=== PATIENT | male | born 1930 ===

== ENCOUNTER 2021-02-28 03:14 | Inpatient (IN) | payer MEDICARE ==
[~2021-02-28] VITALS: Ht 182.9 cm; Wt 84.3 kg
[2021-02-28 04:19] LABS: BASOPHILS ABSOLUTE AUTO 0.01 K/mm3 (0.00-0.23); BASOPHILS PERCENT AUTO 0 % (0-2); EOSINOPHILS ABSOLUTE AUTO 0.01 K/mm3 (0.00-0.68); EOSINOPHILS PERCENT AUTO 0 % (0-6); Hematocrit 29.6 % (37.0-53.0); Hemoglobin 10.7 g/dL (13.5-17.5); IMMATURE GRAN ABSOLUTE AUTO 0.13 K/mm3 (0.00-0.10); IMMATURE GRAN PERCENT AUTO 1 % (0-1); LYMPHOCYTES ABSOLUTE AUTO 0.39 K/mm3 (0.84-5.20); LYMPHOCYTES PERCENT AUTO 4 % (21-46); MONOCYTES ABSOLUTE AUTO 0.57 K/mm3 (0.16-1.47); MONOCYTES PERCENT AUTO 6 % (4-13); Mean Corpuscular HGB 31.7 pg (26.0-34.0); Mean Corpuscular HGB Conc 36.1 g/dL (31.5-36.5); Mean Corpuscular Volume 88 fL (80-100); Mean Platelet Volume 11.4 fL (9.1-12.4); NEUTROPHILS ABSOLUTE AUTO 8.74 K/mm3 (1.96-9.15); NEUTROPHILS PERCENT AUTO 89 % (41-73); Platelet Count 104 K/mm3 (150-400); RDW Coefficient Variation 13.2 % (11.7-14.2); RDW Standard Deviation 42.4 fL (35.1-46.3); Red Blood Cell Count 3.38 M/mm3 (4.30-5.90); White Blood Cell Count 9.85 K/mm3 (4.00-11.30)
[2021-02-28 04:41] LABS: Albumin, Blood 2.6 g/dL (3.4-5.0); Albumin/Globulin Ratio 0.7 (0.8-1.8); Bilirubin, Total 1.2 mg/dL (0.1-1.0); Bun/Creatinine Ratio 33.1 (12.0-20.0); C-REACTIVE PROTEIN, EXT RANGE 14.3 mg/dL (0.000-0.300); Calcium, Blood 8.6 mg/dL (8.5-10.1); Creatinine, Blood 1.81 mg/dL (0.60-1.20); Globulin, Blood 3.5 g/dL (2.2-4.0); Potassium, Blood 4.2 mmol/L (3.5-5.5); Total Protein, Blood 6.1 g/dL (6.4-8.2); Troponin I 0.259 ng/mL (0.000-0.040)
--- NOTE | 2021-02-28 07:24 | NUR ---
TRANSFER NOTE PT TX FROM ER TO ICU SHORTLY BEFORE 0700. TX TO ICU BED VIA SLIDER SHEET. PT ARRIVED ON 6LPM O2 VIA NC c O2 SATS >90%. RR IN THE 30'S. PT ALERT BUT NOT FOLLOWING COMMANDS, HAS HEADPHONES WITH A SPEAKING BOX BUT PT DOES NOT APPEAR TO HEAR THIS NURSE. RATHER LIMITED HISTORY ON PATIENT SO BASELINE UNKNOWN AT THIS TIME. PT WITH 22 GA IV IN R HAND, ZOSYN STARTED. UNABLE TO ESTABLISH A SECOND IV. REPORT GIVEN TO ONCOMING NURSE.
[2021-02-28] MEDS ORDERED: ALLO100 PO (09:03)
[2021-02-28] MEDS ORDERED: BISA5EC PO (09:04)
[2021-02-28] MEDS ORDERED: CENTRUM SILVER1 EAC2 PO (09:04)
[2021-02-28] MEDS ORDERED: ACET325 PO (09:04)
[2021-02-28] MEDS ORDERED: DOXA2 PO (09:06)
[2021-02-28] MEDS ORDERED: DONE5 PO (09:06)
[2021-02-28] MEDS ORDERED: BISA10S (09:07)
[2021-02-28] MEDS ORDERED: ATROVENT HFA12.9 GM (09:08)
[2021-02-28] MEDS ORDERED: LATANOPROST2.5 M3 BOTHEYES (09:09)
[2021-02-28] MEDS ORDERED: ALLERCLEAR10 MG PO (09:10)
[2021-02-28] MEDS ORDERED: MELADOX PO (09:10)
[2021-02-28] MEDS ORDERED: QUET25 PO (09:11)
[2021-02-28] MEDS ORDERED: ZOLOFT50 MG PO (09:12)
[2021-02-28] MEDS ORDERED: SIME80CH PO (09:12)
[2021-02-28 11:29] LABS: Source, Urine Catheter
[2021-02-28 11:38] LABS: Appearance, Urine Clear (Clear); Bilirubin, Urine Neg (Neg); Blood, Urine Neg (Neg); Color, Urine Yellow (P-Yellow); Glucose Qualitative, Urine Neg (Neg); Ketones, Urine Neg (Neg); Leukocyte Esterase, Urine Neg (Neg); Nitrite, Urine Neg (Neg); Protein, Urine 2+ (Neg); Urobilinogen, Urine NORM (Normal)
[2021-02-28 11:53] LABS: Bacteria Few /hpf; Red Blood Cells, Urine 0-2 /hpf (0-2); Squamous Epithelial Cells Rare /hpf (Few); White Blood Cells, Urine 0-2 /hpf (0-5)
--- NOTE | 2021-02-28 15:22 | NUR ---
UPDATE: ASSUMED CARE OF PT AT 0700. PT IS ALERT, HOWEVER IS VERY HARD OF HEARING TO RIGHT EAR, DEAF IN LEFT EAR PER PT'S SON JUAN A. JUAN A STATED THAT PT TESTED POSITIVE FOR COVID ON THE January, THEN SENT TO [facility]. PT IS VACCINATED AGAINST COVID, PER JUAN A. PT LIVES IN AN ASSISTED LIVING IN [place] ([place] AWAITING PLACEMENT FOR MEMORY CARE FACILITY. PT IS CONFUSED AT BASELINE, DUE TO HX OF DEMENTIA PER SON. PT IS CURRENTLY ON 6L OF O2 VIA NC WITH SPO2 ABOVE 90% RR BETWEEN 25-35. RT NT SUCTIONED PT, THICK YELLOW SECRETIONS NOTED. CRACKLES CAN BE HEARD BILAT UPPER LOBES. PT'S COUGH IS VERY WEAK. PT IS NOW A DNR/DNI PER SON'S WISHES. PT HAS BEEN IN SR WITH HR IN THE 70'S, PT HAVING FREQUENT PVC'S, BIGEMINAL PVC'S NOTED, CALLED, ORDERD 2GRAMS OF MAG AND 5MG OF LOPRESSOR. BLADDER SCANNED PATIENT 701ML OF URINE NOTED, TEMP ORTIZ INSERTED, DRAINING JOHN COLORED URINE. WILL CONTINUE TO MONITOR PT T/O SHIFT.
--- NOTE | 2021-02-28 18:17 | NUR ---
END SHIFT NOTE: SEE PREVIOUS NOTE. PT CONTINUES TO BE ALERT, ORIENTED TO SELF, ABLE TO ANSWER SOME YES/NO QUESTIONS. CONFUSED, VERY SLOW TO RESPOND. PT WILL FIDGET WITH LINES AT TIMES, AND PULL ON LEADS, POSSIBLY RELATED TO PAIN. PRN ACETAMINOPHEN GIVEN PER MAR FOR PAIN/FEVER, TMAX 101.1. ACETAMINOPHEN , GOOD EFFECT FOR PAIN, LITTLE EFFECT TO TEMP. ZYPREXA SUBLINGUAL GIVEN FOR AGITATION WITH GOOD EFFECT. PT HAS BEEN ON 2L OF 02 VIA NC SINCE 1600, SPO2 ABOVE 90% PT CONTINUES TO HAVE WEAK COUGH, NT SUCTION PROVIDED PRN, PT TOLERATES WELL. THICK YELLOW SECRETIONS NOTED. PT HAS BEEN IN AFLUTTER WITH HR IN THE 70-80'S, LESS PVC'S NOTED SINCE IVBP MAG GIVEN. BLOOD PRESSURE STABLE T/O SHIFT. TEMP ORTIZ PATENT, DRAINING TO GRAVITY, JOHN IN COLOR, 900ML URINE OUTPUT. NO BM THIS SHIFT. POWER GLIDE PLACED TO KATIA. PT TURNED EVERY TWO HOURS TO PREVENT FURTHER SKIN BREAKDOWN. BED AT LOWEST LEVEL.
--- NOTE | 2021-02-28 19:30 | NUR ---
ASSUMED CARE PATIENT LYING IN BED WITH EYES CLOSED; PULLING AT LINES AND CORDS CONTINUOUSLY. 2L VIA NC IN PLACE WITH SPO2 IN LOW 90'S. NS TKO TO POWER GLIDE IN KATIA. 22G IV IN RT HAND SALINE LOCKED. PATIENT GLASSES ON BEDSIDE TABLE. PATIENT DOES NOT OPEN EYES OR GREET STAFF UPON ENTERING ROOM. MICROPHONE HEADSET IN ROOM AND PATIENT RESPONDS WITH SOUNDS AND "YES/NO/OK" AT TIMES. FOLLOWS COMMANDS INTERMITTENTLY, BUT NOT CONSISTENTLY. TEMP ORTIZ PATENT AND DRAINING DARK YELLOW URINE W/ SEDIMENT. PATIENT HAS FREQUENT PVC'S W/ RATE IN 80'S-90'S. REPORTS OF PATIENT BEING IMPULSIVE AT BASELINE AND FALL RISK; BED ALARM ON. REPORT COMPLETED W/ SERGIO ENRIQUEZ.
[2021-03-01 04:05] LABS: Hematocrit 26.3 % (37.0-53.0); Hemoglobin 9.1 g/dL (13.5-17.5); Mean Corpuscular HGB Conc 34.6 g/dL (31.5-36.5); Mean Corpuscular Volume 90 fL (80-100); Mean Platelet Volume 10.9 fL (9.1-12.4); Platelet Count 147 K/mm3 (150-400); RDW Coefficient Variation 13.2 % (11.7-14.2); RDW Standard Deviation 43.5 fL (35.1-46.3); Red Blood Cell Count 2.94 M/mm3 (4.30-5.90)
[2021-03-01 04:31] LABS: Albumin, Blood 2.3 g/dL (3.4-5.0); Albumin/Globulin Ratio 0.7 (0.8-1.8); Bilirubin, Total 1.3 mg/dL (0.1-1.0); Bun/Creatinine Ratio 31.5 (12.0-20.0); Calcium, Blood 8.8 mg/dL (8.5-10.1); Creatinine, Blood 2.03 mg/dL (0.60-1.20); Globulin, Blood 3.5 g/dL (2.2-4.0); Potassium, Blood 3.7 mmol/L (3.5-5.5); Total Protein, Blood 5.8 g/dL (6.4-8.2)
[2021-03-01 04:33] LABS: BAND PERCENT MAN 31 % (0-8); BASOPHILS PERCENT MAN 0 % (0-2); EOSINOPHILS PERCENT MAN 0 % (0-6); LYMPHOCYTES ABSOLUTE MAN 0.58 K/mm3 (0.84-5.20); LYMPHOCYTES PERCENT MAN 5 % (21-46); MONOCYTES ABSOLUTE MAN 0.46 K/mm3 (0.16-1.47); MONOCYTES PERCENT MAN 4 % (4-13); MYELOCYTE ABSOLUTE MAN 0.11 K/mm3 (0.00-0.00); MYELOCYTE PERCENT MAN 1 % (0-0); NEUTROPHILS ABSOLUTE MAN 10.44 K/mm3 (1.96-9.15); SEG NEUTROPHILS PERCENT MAN 59 % (41-73); TOTAL CELLS COUNTED 100
--- NOTE | 2021-03-01 05:56 | NUR ---
SHIFT SUMMARY PATIENT REMAINED ON NC THROUGOUT SHIFT, INCREASED TO 3LPM FROM 2LPM TOWARDS THE END OF SHIFT D/T DECREASED SPO2. PATIENT HAD TWO EPISODES OF RATTLING AND INCREASED SECRETIONS IN AIRWAY, NT SUCTIONED BY RT WITH RETURN OF SPO2 TO MID 90'S. FREQUENT PVC'S PRESENT ON RHYTHM W/ RATE IN 70'S-100'S. PATIENT REQUIRED 2 DOSES OF ZYPREXA FOR EPISODES OF PICKING AT LINES, CORDS, AND TUBES. NO BM DURING SHIFT, TEMP ORTIZ STILL PATENT. TEMP REACHED 100.4F DURING SHIFT; TYLENOL SUPPOSITORY GIVEN ONCE W/ TEMP RETURN TO 99'SF. NO OTHER MAJOR CHANGES DURING SHIFT.
--- NOTE | 2021-03-01 08:00 | NUR ---
INITIAL ASSESSMENT PATIENT SLEEPING IN BED UPON ENTERING ROOM. PATIENT VERY [place]. NO L COCHLEAR IMPLANT OR R HEARING AID NOTED IN ROOM OR ON PATIENT. PATIENT RESPONDS TO PHYSICAL TOUCH. PATIENT DOES NOT RESPOND WITH/ TO EAR PHONES WITH SPEAKER OR WITH WHITE BOARD AND DRY ERASE MARKER. PATIENT FOLLOWS MINIMAL COMMANDS SUCH OPENING MOUTH WITH ORAL CARE, LIFTING ARM FOR AUSCULTATION OF LUNG SOUNDS, ETC. PATIENT MAKES NO ATTEMPT TO COMMUNICATE OR SPEAK WITH NURSE. FACE FLAT AND PATIENT STARING STRAIGHT FORWARD WITH EYES APPEARING TIRED. PATIENT OCCASIONALLY FIDGETS AND PULLS AT BEDDING, GOWN, ETC. PUPILS SLUGGISH. PATIENT WEAK BUT ABLE TO MOVE ALL EXTREMITIES. NO PAIN OR DISCOMFORT NOTED. PATIENT HAS CORE TEMP OF 99.6 DEGREES FAHRENHEIT. LUNGS RATTLING BEFORE NT SUCTION. MODERATE AMOUNT OF THIN, WALL SECRETIONS NOTED WITH SUCTIONING. PATIENT SATTING 90% AND GREATER ON 3 L NC. WEAK COUGH NOTED. LEFT LUNG LOBES DIMINISHED. CRACKLES NOTED IN LLL. PATIENT IN SR WITH BBB AND FREQUENT PVCS. HR 70S TO 80S. SBP LOW 100S TO 130S. ABDOMEN MILDLY DISTENDED WITH HYPERACTIVE BS NOTED. DATE OF LAST BM UNKNOWN. TEMP PROBE ORTIZ IN PLACE DRAINING DARK YELLOW COLORED URINE. SKIN PALE, DRY AND FRAGILE. SKIN TEAR NOTED TO R ELBOW. SCATTERED BRUISES NOTED T/O BODY. ULCER NOTED TO SACRUM. BED LOW, CALL LIGHT IN REACH. WILL CONTINUE TO MONITOR PATIENT FREQUENTLY THROUGHOUT SHIFT.
--- NOTE | 2021-03-01 10:28 | NUR ---
PATIENT'S SON, JUAN A, UPDATED ON PATIENT STATUS. PRIMARY NURSE SPOKE WITH PALLIATIVE CARE NURSE AND UPDATED ON PATIENT STATUS. PALLIATIVE CARE NURSE STATED SHE WOULD GIVE PATIENT'S SON A CALL.
--- NOTE | 2021-03-01 12:00 | NUR ---
DR. GATICA UPDATED ON PATIENT STATUS. INFORMED THAT PATIENT HAD TMAX OF 100.4 DEGREES FAHRENHEIT ON KETTLE ROOM HELPER. INFORMED THAT PATIENT WBCS AND KIDNEY LABS INCREASING. INFORMED THAT PATIENT NPO AND NOT ON NUTRITION AND DOES NOT HAVE MAINTENANCE FLUIDS INFUSING. INFORMED THAT PATIENT HAS NOT HAD XR ON L HIP AND L CLAVICLE FALL AREAS WITH EXTENSIVE BRUISING. ORDER FOR CHEST XR, L HIP XR AND MAINTENANCE FLUIDS RECEIVED. DOCTOR INFORMED OF PALLIATIVE CARE DISCUSSION WITH POA SON. INFORMED THAT SON AND SUPPOSED TO VISIT TOMORROW TOGETHER AND MAKE DECISION REGARDING FUTURE PLAN.
--- NOTE | 2021-03-01 12:38 | NUR ---
CASE CONFERENCE: Spoke to pt's son Jose regarding pt's decline, and he is aware the pt may not recover, as he is only waking for brief periods, and not taking in oral nutrition. Per Jose, the patient and his currently live at [facility] in [place]. The patient was going to be moving to a memory care facility due to increasing care needs and worsening dementia. However, after speaking to Kathrin, Apprentice/Lineman at [facility], she indicated the patient would be welcome to return home with hospice or otherwise. Jose plans to bring his mom Franchesca, pt's to see him tomorrow. At that point, we will discuss options, including hospice. Their stated preferred hospice is [facility], with 2nd choice being [facility], if [facility] doesn't have openings. Spoke to Caridad Powers, High Speed Warper Tender regarding this case.
--- NOTE | 2021-03-01 12:40 | NUR ---
PATIENT AFEBRILE. HR 60S TO 80S. SBP LOW 100S TO 140S. NO OTHER ACUTE CHANGES TO NOTE ON AT THIS TIME. NO SIGNS OF PAIN OR DISCOMFORT NOTED. WILL CONTINUE TO MONITOR.
--- NOTE | 2021-03-01 16:14 | NUR ---
SHIFT SUMMARY PATIENT HAS REMAINED SLEEPING FOR MOST OF THE SHIFT. PATIENT ABLE TO RESPOND YES/ NO FOR A COUPLE QUESTIONS THIS AFTERNOON AFTER SPEECH THERAPY TRIED WORKING WITH PATIENT. PATIENT DOES NOT HAVE L COCHLEAR IMPLANT OR R HEARING AID HERE IN HOSPITAL. PATIENT HAD NO SIGNS OF PAIN THIS SHIFT. PATIENT HAD TMAX OF 99.6 DEGREES FAHRENHEIT. PATIENT HAS REMAINED SATTING 90% AND GREATER ON 3 L NC THIS SHIFT. PATIENT HAS REMAINED IN SR WITH BBB AND FREQUENT PVCS. HR RANGED FROM 60S TO 80S. SBP RANGED FROM LOW 100S TO 140S. DATE OF LAST BM UNKNOWN. PATIENT REMAINS NPO AFTER TODAYS SPEECH EVAL. ORTIZ DRAINED 550 MLS OF DARK YELLOW COLORED URINE. NO CHANGES TO SKIN NOTED. PATIENT REPOSITIONED T/O SHIFT. NS INFUSING AT 100 MLS/ HOUR. PATIENT HAD CHEST AND L HIP XR THIS SHIFT. HIP XR SHOWED DISPLACED INTERTROCHANTERIC L FEMUR FRACTURE. PRIMARY NURSE AND PALLIATIVE CARE NURSE SPOKE WITH PATIENT'S SON WHOM IS POA. SON AND PATIENT'S TO COME SEE PATIENT TOMORROW. PATIENT WILL BE TRANSFERRED TO MEDICAL FLOOR, ROOM 326 SHORTLY.
--- NOTE | 2021-03-01 16:36 | NUR ---
PATIENT TRANSFERRED TO MEDICAL FLOOR, ROOM 326. ALL BELONGINGS INCLUDING EAR PHONES WITH AMPLIFIER SENT WITH PATIENT.
--- NOTE | 2021-03-01 17:06 | NUR ---
SHIFT SUMMARY PATIENT TRANSFERRED FROM ICU AT 1645. PATIENT SETTLED INTO ROOM. PATIENT SHOWS NO SIGN OF PAIN, NAUSEA, AND SHORTNESS OF BREATH. PATIENT IS ON ROOM AIR SATURATING AT 93%. PATIENT OPENS EYES AND RESPONDS TO PHYSICAL TOUGH. PATIENT DID NOT ANSWER ANY QUESTIONS OR VERBALIZE. ORTIZ IS PATENT AND DRAINING JOHN COLORED URINE. TELE ORDERED, AWAITING ARRIVAL. PATIENT ON BEDREST. PATIENT IS NPO. SUCTION SET UP IN ROOM.
--- NOTE | 2021-03-02 02:55 | NUR ---
SHIFT SUMMARY: A&OX1, AWAKE MUMBLES TO SELF, DOES NOT RESPOND TO QUESTIONS FROM NURSING STAFF, LLL CRACKELS HAD NASAL TRUMPET (PULLED ON NOC), O2 > 90% ON RA. FIDGETS AND PULLS AT LINES. APPROX 0130 PATIENT BECAME AGITATED AND BEGAN PULLING AT ALL HIS LINES AND REMOVED NASAL TRUMPET, REMOVED DRESSING OFF POWERGLIDE, POWERGLIDE REMAINED IN PLACE D/T SECURMENT DEVICE. BRISK BLOOD RETURN. CHARGE NURSE PLACED NEW DRESSING. REMOVED ORTIZ STAT LOCK AND TELE. PRN ZYPREXA GIVEN. PATIENT REMAINS FIDGETY AND CONTINUES TO PULL AT LINES >1 HOUR ZYPREXA ADMIN, BILATERAL WRIST RESTRAINT ORDER OBTAINED. SCATTERED BRUSIING THROUGHOUT BODY, WOUND TO COCCYX DRESSING CDI, SKIN TEAR TO RIGHT ELBOW. TELE = AFIB 90S WITH FREQ PVS. PATIENTS AND SON TO COME IN TODAY AND DISCUSS PLAN OF CARE.
[2021-03-02 05:49] LABS: Hematocrit 29.9 % (37.0-53.0); Hemoglobin 9.9 g/dL (13.5-17.5); Mean Corpuscular HGB 30.5 pg (26.0-34.0); Mean Corpuscular HGB Conc 33.1 g/dL (31.5-36.5); Mean Corpuscular Volume 92 fL (80-100); Mean Platelet Volume 11.3 fL (9.1-12.4); NRBC ABSOLUTE 0.02 K/mm3 (0.00-0.02); NRBC Auto 0.1 /100 WBC (0.0-0.2); Platelet Count 243 K/mm3 (150-400); RDW Coefficient Variation 13.6 % (11.7-14.2); RDW Standard Deviation 45.9 fL (35.1-46.3); Red Blood Cell Count 3.25 M/mm3 (4.30-5.90); White Blood Cell Count 17.29 K/mm3 (4.00-11.30)
[2021-03-02 06:31] LABS: Albumin, Blood 2.4 g/dL (3.4-5.0); Albumin/Globulin Ratio 0.7 (0.8-1.8); Bilirubin, Total 1.2 mg/dL (0.1-1.0); Bun/Creatinine Ratio 36.1 (12.0-20.0); Creatinine, Blood 1.58 mg/dL (0.60-1.20); Globulin, Blood 3.3 g/dL (2.2-4.0); Potassium, Blood 3.9 mmol/L (3.5-5.5); Total Protein, Blood 5.7 g/dL (6.4-8.2)
--- NOTE | 2021-03-02 13:11 | NUR ---
Pt's and son came for a visit today, and they are both in agreement that hospice is the best option for this patient. I contacted [facility] in [place], and they plan to admit pt tomorrow, as long as they have the needed information today. I printed out H an P, nursing notes, contact information etc and delivered to Abril, Furniture Manager. Informed pt's son Jose that Abril would be following up with getting pt d/c'd back to [facility] in [place] with [facility] services tomorrow, 03/03/21. Abril states she'll get the hospice referral from Dr. Whatley and any further needed paperwork for hospice services.
--- NOTE | 2021-03-02 17:39 | NUR ---
SHIFT SUMMARY PT AxOx1- SELF. PT DROWSY AND SLEEPING FOR MOST OF THE DAY. CONFUSED WHEN AWAKE. AND SON IN ROOM TODAY. MET WITH PALLIATIVE CARE. PLAN IS LIKELY TO DC ON HOSPICE TO FACILITY. TELE DC'D. COARSE CRACKLES IN THE AMANDA BASES. SUCTION NEEDED AND ORAL CARE Q4 HOURS. NPO FOR ASPIRATION RISK. Q2 TURNS PT ON BED REST WITH WRIST RESTRAINTS FOR PULLING AT CORDS AND TUBES. PT CURRENTLY RESTING IN BED WITH CALL LIGHT IN REACH.
--- NOTE | 2021-03-03 05:36 | NUR ---
SHIFT SUMMARY ASSUMED CARE AT 1900. PT REMAINS IN EHNACED ISOLATION FOR +COVID. PT AAOX1. THIS MORNING IS NOW ANSWERING YES OR NO QUESTIONS INSTEAD OF MUMBLING INCOHERENTLY. PLACED ON 2L O2 THIS MORNING DUE TO SOME INCREASED WORK OF BREATHING, W/ GOOD EFFECT. OCCASIONAL COUGHING NOTED. RUE POWERGLIDE DRESSING INTACT WITH D% INFUSING AT 75ML/HR. PT STILL ON FIRST BAG OF IVF. ORTIZ CATHETER PATENT, DRAINING URINE VIA GRAVITY. BILATERAL SOFT WRIST RESTRAINTS IN PLACE, ORDER RENEWED AT 0240. IV TUBING ANF ORTIZ CATHETER CONCEALED. PT TURNED AND REPOSITIONED AND RESTRAINTS/SKIN, CIRCULATION CHECKED Q2H. BED IN LOW POSITION WITH CALL LIGHT WITHIN REACH. WILL CONTINUE TO MONITOR.
[2021-03-03] MEDS ORDERED: OLAN5A MM (10:58)
--- NOTE | 2021-03-03 11:51 | NUR ---
REPORT CALLED TO [facility] PT REPORT PROVIDED TO SERGIO ESPARZA @ [facility] @ THIS TIME.
--- NOTE | 2021-03-03 13:28 | NUR ---
PATIENT D/C'D TO [facility] IN [place]. PATIENT TRANSPORTED VIA GURNEY. REPORT CALLED TO VILMA NURSE AT THE FACILITY. D/C INSTRUCTIONS AND EDUCATION GIVEN TO TRANPORT TEAM. PATIENT DENIES ANY FURTHER QUESTIONS OR CONCERNS.
== END 2021-03-03 12:34 | disposition hospice, home (50) | DRG 177 ==
LOC: ER 03:14 → ICUW 05:15 → MEDS 03-01 16:50
PROVIDERS: Emergency Medicine; Internal Medicine; ADMIT Internal Medicine
PROC: 3E0333Z Introduction of Anti-inflammatory into Peripheral Vein, Percutaneous Approach (ICD-10-PCS; principal; 2021-02-28)
PROC: 8E0ZXY6 Isolation (ICD-10-PCS; 2021-02-28)
DX: U07.1 COVID-19 (principal); J69.0 Pneumonitis due to inhalation of food and vomit; J12.82 Pneumonia due to coronavirus disease 2019; J96.21 Acute and chronic respiratory failure with hypoxia; Z66 Do not resuscitate; D64.9 Anemia, unspecified; F03.90 Unspecified dementia, unspecified severity, without behavioral disturbance, psychotic disturbance, mood disturbance, and anxiety; Z51.5 Encounter for palliative care; I45.10 Unspecified right bundle-branch block; Z85.038 Personal history of other malignant neoplasm of large intestine; N18.9 Chronic kidney disease, unspecified
CPT/HCPCS: 31720; 36415; 51702; 71045; 73501; 80053; 81001; 82947; 83735; 83880; 84145; 84484; 85025; 85027; 86140; 92610; 93005; 93010; 94640; 94760; 99285-25; A9270; C1751; J1100; J1650; J2543; J3475; J7030; J7050; J7070